=== PATIENT | female | born 1975 | race Two or more races ===

== ENCOUNTER 2024-02-12 08:30 | Outpatient (CLI) | payer OTHER | END 2024-02-12 23:59 | disposition home or self-care (01) | LOC: MRI02 08:30 | PROVIDERS: ATTEND Family Medicine | DX: S46.811D Strain of other muscles, fascia and tendons at shoulder and upper arm level, right arm, subsequent encounter (principal); M77.9 Enthesopathy, unspecified; M75.51 Bursitis of right shoulder; M19.011 Primary osteoarthritis, right shoulder; X58.XXXD Exposure to other specified factors, subsequent encounter | CPT/HCPCS: 73221 ==